=== PATIENT | female | born 1960 | race Caucasian/White ===

== ENCOUNTER 2016-07-28 10:33 | Day surgery (SDC) ==
[2015-04-21 16:15] VITALS: BMI 21.5
[2016-07-28] MEDS ORDERED: LIDOCAINE 1% 20 ML MDV ID ONE (11:30)
[2016-07-28] MEDS ORDERED: VERSED ONE (12:20)
[2016-07-28] MEDS ORDERED: DIPRIVAN 20 ML VIAL IVP ONE (12:20)
[2016-07-28] MEDS ORDERED: LIDOCAINE HCL 2% LUER-JET ONE (12:20)
[2016-07-28 14:06] VITALS: BP 141/89; TEMP 98.1
--- NOTE | 2016-07-29 14:05 | OP ---
INDICATIONS FOR PROCEDURE: 56 year old female present for evaluation of an epigastric burning and burning in her throat. She has burning in her upper chest and throat area at night time and will wake her up at times. She does admit to eating bowels of cereal at night. She also has intermittent dysphagia of solid foods. She has a history of esophageal stricture which was dilated in the past. She presents now for endoscopy investigation. MEDICATIONS: SEE ANESTHESIA NOTES. PROCEDURE: ENDOSCOPY, JOHN BIOPSY and SLOVENIAN DILATION. REPORT: The risks, benefits, alternatives and limitations were discussed in detail with the patient. Informed consent was obtained. After adequate sedation was achieved, the video endoscope was introduced in the posterior pharynx and esophagus under direct vision and easily advanced down to the second portion of the duodenum. I then slowly withdrew. The duodenal mucosa appeared unremarkable as did the duodenal bulb. The antrum and body were relatively unremarkable. Two biopsies from the antrum and the one from the body for H.Pylori testing. The scope was retroflexed to look at the cardia and fundus which was revealed a small hiatal hernia and no other abnormalities. The scope was anteflexed and withdrawn back through the esophagus there was about a 2cm sliding hiatal hernia. At the GE junction there is mild stricturing. The mucosa was otherwise unremarkable the entire length of the esophagus. The advance the scope back down the gastric lumen and the place the guidewire and withdrew the scope. Over the guidewire I easily advanced the 56 [place] Dilator. The patient tolerated the procedure well with stable vital signs and pulse oximetry throughout. IMPRESSION: 1. Small hiatal hernia 2. Esophageal stricture successful dilated as above RECOMMENDATIONS: 1. Strict reflux precautions. I went over these in great detail with her. Especially nothing to eat or drink late at night. I have asked her to elevate her head in bed 4-6 inches as well continue with better reflux precautions as discussed. 2. I have suggested taking an over the counter Pepcid AC QHS to go along with her QAM Omeprazole 3. She is to cut and chew her food less and eating slowly. 4. We will see her back in the office as needed. CC: Dr. Logan FARAH
== END 2016-07-28 13:35 | disposition home or self-care (01) ==
LOC: SURG 10:33
PROVIDERS: ATTEND Internal Medicine Gastroenterology
DX: R10.13 Epigastric pain (principal); R13.10 Dysphagia, unspecified; K44.9 Diaphragmatic hernia without obstruction or gangrene; K22.2 Esophageal obstruction
CPT/HCPCS: 87339

== ENCOUNTER 2016-09-24 13:15 | Outpatient (RCR) ==
[2015-04-21 16:15] VITALS: BMI 21.5
== END 2016-09-28 ==
PROVIDERS: ATTEND Nurse Practitioner Family
DX: M50.320 Other cervical disc degeneration, mid-cervical region, unspecified level (principal); M79.602 Pain in left arm

== ENCOUNTER 2016-10-13 10:00 | Outpatient (RCR) ==
[2015-04-21 16:15] VITALS: BMI 21.5
--- NOTE | 2016-10-05 15:49 | RS.OPPTEV2 ---
Date of Note: 10/01/16 Visit #: 1 Date of Evaluation: 10/01/16 Payer Source: Medicaid Date of Onset/Injury/Change in Status: 03/01/16 Treatment Diagnosis: Cervical disc degeneration, cervical spondylosis History of Condition/Mechanism of Injury:: Patient reports chronic neck pain over ten years. She has had three different surgical procedures to the neck, the most recent surgery was over 5 years ago. States her neck pain and limitations have continued to worsen. Prior Level of Function.....Patient was independent with: ADL's, Self Care, Ambulation/Mobility, Community Integration/Access Functional Limitations: Sleep, Self Care, ADL's, Reaching, Pushing, Pulling, Lifting, Carrying, Sitting, Community Access/Integration Current Subjective/complaints:: Patient reports neck pain and migraines limit her functional ability on a daily basis. States over the last six months, her migraines have increased to approximately four times a week. She goes to Pain Management and receives injections to the low back. States Dr. Massey office has recommended injections to her neck, but Pain Management will not do them. Reports neck pain, mainly throbbing, that goes into the head. Reports pain into both shoulders. States she gets numbness into her UE's. States she has tingling in her hands from Carpal Tunnel Syndrome. Reports difficulty driving due to limited neck ROM. Reports decreased er medical technician strength and the feeling of heaviness in the UE's. Reports having difficulty using her UE's to fix her hair or put on her makeup. Also reports having to take showers, because she cannot get out of a tub. She lives alone and needs to be able to do everything for herself. States she is trying to get Disability. She has a hearing next month. Medical History Medical History: Hypertension, COPD, Diabetes, Arthritis Medical History Comments:: Fibromyalgia, migraines Surgical History: (X 3, most recent surgery >5 years ago) Smoking Status: Never smoker Hx Home Medications: Lipitor,Elavil, Elmiron, [place],Topamax, Gabapentin, Sumatriptan,omeprazole Patient's Goals: Her goal is to get relief neck pain and gain more mobility. Pain Assessment - Pain Description Pain Location: Cervical spine Pain Description: Throbbing Current Pain Intensity: 8/10 Worst Pain Intensity: 10/10 Functional Outcome Measure Neck Disability Index: 84 - G Codes & Severity Modifier G Codes & Modifier: NA Source of G Code score: NA Observation - Observation Posture: Forward Head, Rounded Shoulders Handedness: Right - ROM Comments: Cervical flexion 50% of normal range, extension ~ 10 degrees past neutral, rotation to the left 10-15 degrees, rotation to the right 45 degrees. Bilateral UE AROM is approximately 130 degrees flexion, scaption, and abduction. - Strength Comments: General UE strength 4/5. Dust Control Engineer Strength Left Hand Dust Control Engineer Strength: does not register Right Hand Dust Control Engineer Strength: 17 lbs. Dynamometer Testing Position: 2nd Position Palpation Comments:: Patient reports tenderness throughout bilateral upper traps, cervical paraspinals, and over the spinous processes throughout the cervical spine. Reports no tenderness at the suboccipital myofascia. Demonstrates moderate increased muscle tone along bilateral upper traps. Sensation - Sensation Right Upper Extremity: Intact/Normal Left Upper Extremity: Intact/Normal Interventions - Exercise/Activities/Manual Therapy Exercises/Activities: Patient instructed in exercises for home of: gentle stretching into lateral flexion and rotation, scapular retraction, and pec stretch (corner stretch). Manual Therapy: NA HOME EXERCISE PROGRAM: gentle stretching into lateral flexion and rotation, scapular retraction, and pec stretch (corner stretch). - Charges Total Direct Minutes: 55 mins Total Treatment Time: 55 mins Procedures billed for this date of service:: LATOYA wright X3 Assessment Assessment: Patient presents to therapy with a diagnosis of Degeneration of intervertebral disc of cervical spine, left arm pain. Reports progressive neck and UE pain, and migraines. Reports limitation in most selfcare and ADL's due to neck and UE pain. She exhibits increased muscle tone along the upper traps bilaterally. She demonstrates limited cervical AROM. General weakness in the UE's and er medical technician does not register upon testing the left hand. She demonstrates potential to get improvement in muscle tone to help improve her mobility at the cervical spine. She will benefit from stretching, stability/postural exercises, and education to decrease her symptoms and improve her overall functional ability. Patient Education: Education of diagnosis, Body/Joint mechanics, Home Exercise Program, Activity Modification, Education of Plan of Care Rehab Potential: Good Short Term Goals Goal #1: Pt independent and compliant with initial HEP. Goal to be met by: 10/19/16 Goal #2: Cervical rotation to the left improved to 30-40 degrees. Goal to be met by: 10/19/16 Goal #3: Muscle tone along bilateral upper traps decreased to minimal. Goal to be met by: 10/19/16 Snf Goals Goal #1: Patient knows HEP and to continue ex's to maintain functional level at D/C. Goal to be met by: 11/14/16 Goal #2: Score on Neck Disability index improved to 60. Goal to be met by: 11/14/16 Goal #3: Pt able to perform selfcare and ADL's with minimal neck pain. Goal to be met by: 11/14/16 Goal #4: Pt will demonstrate good postural awareness. Goal to be met by: 11/14/16 Plan - Treatment to be Provided Procedures: Therapeutic Exercises, Therapeutic Activity, Manual Therapy, Patient Education Modalities: Electrical Stimulation, Ultrasound/Phonophoresis, Cryotherapy, Hot Packs, Mechanical Traction (trial of gentle cervical traction) - Treatment Plan Frequency: 3 X week Duration: 4 weeks ORDER # VISITS AND/OR THROUGH DATE: 11/14/16 - Treatment Code (1) Neck pain Comments: M54.2 (2) Muscle tightness Comments: M62.89 (3) Degenerative disc disease, cervical Comments: M50.30
--- NOTE | 2016-10-06 11:18 | RS.OPPTDN ---
Subjective Date of Note: 10/06/16 Visit #: 2 Date of Evaluation: 10/01/16 Payer Source: Medicaid Treatment Diagnosis: Cervical disc degeneration, cervical spondylosis Current Subjective/complaints:: Patient arrives at clinic with report of having a migraine the past two days and her cervical motion is very guarded. Pain Assessment - Pain Description Pain Location: Cervical spine Pain Description: Throbbing Current Pain Intensity: 12/10 - Heat/Cryotherapy Treatment: Hot Pack (20 mins. prior to manual therapy.) Interventions - Exercise/Activities/Manual Therapy Exercises/Activities: N/A Total minutes of Exercise: 0 Manual Therapy: 35 mins. total of gentle soft tissue mobilizations to the cervical paraspinals and bilateral upper traps.Attempted gentle occipital release ,but unable to tolerate due to pain. Total minutes of Manual Therapy: 35 HOME EXERCISE PROGRAM: gentle stretching into lateral flexion and rotation, scapular retraction, and pec stretch (corner stretch). - Charges Total Direct Minutes: 35 Total Treatment Time: 55 Procedures billed for this date of service:: hp,manual 2 Assessment: Patient is very guarded today,reports increased pain with moderate pressure application during masage.She is able to tolerate light pressure .She reports sharp pain with atempted occipital release today.She has hypertonus present in both the L and R upper traps.She also has tenderness present at the C7 spinous process. Patient Education: Education of diagnosis, Body/Joint mechanics, Home Exercise Program, Home Safety, Activity Modification, Education of Plan of Care Short Term Goals Goal #1: Pt independent and compliant with initial HEP. Goal to be met by: 10/19/16 Goal #2: Cervical rotation to the left improved to 30-40 degrees. Goal to be met by: 10/19/16 Goal #3: Muscle tone along bilateral upper traps decreased to minimal. Goal to be met by: 10/19/16 Dye Room Helper Goals Goal #1: Patient knows HEP and to continue ex's to maintain functional level at D/C. Goal to be met by: 11/14/16 Goal #2: Score on Neck Disability index improved to 60. Goal to be met by: 11/14/16 Goal #3: Pt able to perform selfcare and ADL's with minimal neck pain. Goal to be met by: 11/14/16 Goal #4: Pt will demonstrate good postural awareness. Goal to be met by: 11/14/16 Plan PLAN OF CARE EXPIRES ON:: 11/14/16 ORDER # VISITS AND/OR THROUGH DATE: 11/14/16 PLAN: Continue Plan of Care
--- NOTE | 2016-10-08 15:37 | RS.CXNS ---
Date of scheduled appointment: 10/08/16 Type: No Show
--- NOTE | 2016-10-13 11:34 | RS.OPPTDN ---
Subjective Date of Note: 10/01/16 Visit #: 3 Date of Evaluation: 10/01/16 Payer Source: Medicaid Treatment Diagnosis: Cervical disc degeneration, cervical spondylosis Current Subjective/complaints:: Patient reports having a migraine again today, feels,"slightly better."She reports ding some of the exercises as she can tolkerate,but cannot do the corner or doorway (pecs.) stretch due to this elevates her pain. Pain Assessment - Pain Description Pain Location: Cervical spine Pain Description: Throbbing, Aching Current Pain Intensity: 10/10 - Heat/Cryotherapy Treatment: Hot Pack (20 mins. to cervical , prior to manual therapy.) Interventions - Exercise/Activities/Manual Therapy Exercises/Activities: HEP review only today,has good understanding of each. Total minutes of Exercise: 0 Manual Therapy: 30 mins. total of gentle soft tissue mobilizations to the cervical paraspinals and bilateral upper traps. Total minutes of Manual Therapy: 30 HOME EXERCISE PROGRAM: gentle stretching into lateral flexion and rotation, scapular retraction, and pec stretch (corner stretch). - Charges Total Direct Minutes: 30 Total Treatment Time: 50 Procedures billed for this date of service:: hp,manual 2 Assessment: Patient tolerates manual therapy fairly well,reports increased discomfort as the soft tissue mobs. progressed.She does tolerate pressure to the paraspinal trigger points sligthly better today,but continues to be very guarded,making it difficult to assess the tone in the muscles. Patient Education: Education of diagnosis, Body/Joint mechanics, Home Exercise Program, Home Safety, Activity Modification, Education of Plan of Care Patient demonstrates compliance with HEP?: Yes (as she can tolerate) Short Term Goals Goal #1: Pt independent and compliant with initial HEP. Goal to be met by: 10/19/16 Progress towards Goal:: Progressing Goal #2: Cervical rotation to the left improved to 30-40 degrees. Goal to be met by: 10/19/16 Goal #3: Muscle tone along bilateral upper traps decreased to minimal. Goal to be met by: 10/19/16 Progress towards Goal:: No Change [facility] Goals Goal #1: Patient knows HEP and to continue ex's to maintain functional level at D/C. Goal to be met by: 11/14/16 Progress towards goal: Progressing Goal #2: Score on Neck Disability index improved to 60. Goal to be met by: 11/14/16 Goal #3: Pt able to perform selfcare and ADL's with minimal neck pain. Goal to be met by: 11/14/16 Goal #4: Pt will demonstrate good postural awareness. Goal to be met by: 11/14/16 Progress towards goal: Progressing Plan PLAN OF CARE EXPIRES ON:: 11/14/16 ORDER # VISITS AND/OR THROUGH DATE: 11/14/16 PLAN: Continue Plan of Care
--- NOTE | 2016-10-15 09:07 | RS.CXNS ---
Date of scheduled appointment: 10/15/16 Type: Cancel Reason for Cancel/NS: Called ,has migraine today.
== END 2016-10-29 ==
PROVIDERS: ATTEND Nurse Practitioner Family
DX: M50.320 Other cervical disc degeneration, mid-cervical region, unspecified level (principal); M79.602 Pain in left arm

== ENCOUNTER 2016-11-24 13:01 | Outpatient (CLI) ==
[2015-04-21 16:15] VITALS: BMI 21.5
--- NOTE | 2016-11-25 10:04 | MAMMO ---
EXAM: Digital screening mammogram with tomosynthesis and CAD HISTORY: Screening mammogram COMPARISON: Mammogram 08/24/2014 and 07/28/2011 FINDINGS: Bilateral CC and MLO views of the breasts were performed digitally and demonstrate scatter ed fibroglandular breast density. Tomosynthesis is normal. There is no abnormal nodule or calcificati on. There is no significant interval change. IMPRESSION: No new or suspicious nodule or calcification RECOMMENDATION: Annual screening mammogram BIRADS category 1: Negative
== END 2016-11-24 13:02 | disposition home or self-care (01) ==
LOC: RAD 13:01
PROVIDERS: ATTEND Family Medicine
DX: Z12.31 Encounter for screening mammogram for malignant neoplasm of breast (principal)
CPT/HCPCS: 77067

== ENCOUNTER 2017-05-12 09:19 | Emergency (ER) ==
[2017-05-12 09:24] VITALS: BP 134/77; TEMP 98; BMI 25.0
[2017-05-12] MEDS ORDERED: MORPHINE 4 MG/ML VIAL IVP STA ×2 (09:29→09:36)
[2017-05-12] MEDS ORDERED: MORPHINE 2 MG/ML SYRINGE IM STA (09:36)
[2017-05-12] MEDS: TORADOL IM STA (09:46)
[2017-05-12] MEDS: DECADRON 4 MG/ML SDV IM STA (09:47)
[2017-05-12] MEDS: ZOFRAN 4 MG/2 ML IM STA (09:48)
[2017-05-12] MEDS: MORPHINE 4 MG/ML SYRINGE IM STA (09:49)
--- NOTE | 2017-05-12 10:17 | ED.PDOC ---
General ED Provider: Dr. VIPUL CENTENO Chief Complaint: Back Pain Stated Complaint: BACK PAIN Time Seen by Physician: 09:30 Mode of Arrival: Walk-In Information Source: Patient Exam Limitations: No limitations Primary Care Provider: JESU BARRERA Nursing and Triage Documentation Reviewed and Agree: Yes Reviewed sepsis parameters & appropriate labs ordered?: Yes System Inflammatory Response Syndrome: Not Applicable Sepsis Protocol: For patient's 13 years and over: Temp is 96.8 and below OR 101 and greater Pulse >90 BPM Resp >20/minute Acutely Altered Mental Status Are patient's symptoms suggestive of a new infection, such as: -Pneumonia -Skin, Soft Tissue -Endocarditis -UTI -Bone, Joint Infection -Implantable Device -Acute Abdominal Infection -Wound Infection -Meningitis -Blood Stream Catheter Infection -Unknown System Inflammatory Response Syndrome: Not Applicable Musculoskeletal Complaint Exam - Back Pain Complaint/Exam Mechanism of Injury: Reports: No known trauma Onset/Duration: 1 DAY Symptoms Are: Still present Episodes Lasting: Hours Initial Severity: Moderate Current Severity: Moderate Character: Reports: Aching, Throbbing Aggravating: Reports: Movements, Lifting, Bending, Walking Alleviating: Reports: Rest, Position Associated Signs and Symptoms: Denies: Swelling, Redness, Bruising, Fever, Weakness, Numbness, Tingling, Abdominal pain, Flank pain, Bladder incontinence, Bowel incontinence, Weight loss, Pain with weight bearing Related History: Reports: Similar episode Cauda Equina Risk Factors: Reports: None Epidural Abcess Risk Factors: Reports: None Related Surgical History: Reports: None Focal Tenderness: Yes Paraspinal Muscle Tenderness: No Paraspinal Muscle Spasm: No Scoliosis: No Lordosis: No Kyphosis: No SLR Test: Right Negative, Left Negative Hip Motion Testing Pain: Right Negative, Left Negative Focal Weakness: Present: None Focal Sensory Loss: Present: None Gait: Present: Normal Differential Diagnoses: Strain, Sprain Review of Systems - Review Of Systems Constitutional: Reports: No symptoms Eyes: Reports: No symptoms Ears, Nose, Mouth, Throat: Reports: No symptoms Respiratory: Reports: No symptoms Cardiac: Reports: No symptoms GI: Reports: No symptoms : Reports: No symptoms Musculoskeletal: Reports: Back pain Skin: Reports: No symptoms Neurological: Reports: No symptoms Endocrine: Reports: No symptoms Hematologic/Lymphatic: Reports: No symptoms All Other Systems: Reviewed and Negative Past Medical History - Past Medical History Previously Healthy: Yes Endocrine: Reports: None Cardiovascular: Reports: None Respiratory: Reports: None Hematological: Reports: None Gastrointestinal: Reports: GERD, GI Bleed Genitourinary: Reports: None Neuro/Psych: Reports: Migraine, Depression Musculoskeletal: Reports: Back Pain Cancer: Reports: None Last Menstrual Period: n/a - Surgical History General Surgical History: Reports: Hysterectomy, Cholecystectomy, Back Surgery - Family History Family History: Reports: Unknown - Social History Smoking Status: Never smoker Hx Substance Use: No Alcohol Screening: None Physical Exam - Physical Exam Appearance: Well-appearing, No pain distress, Well-nourished Eyes: AARTI, EOMI, Conjunctiva clear ENT: Ears normal, Nose normal, Oropharynx normal Respiratory: Airway patent, Breath sounds clear, Breath sounds equal, Respirations nonlabored Cardiovascular: RRR, Pulses normal, No rub, No murmur GI/: Soft, Nontender, No masses, Bowel sounds normal, No Organomegaly Musculoskeletal: Normal strength, ROM intact, No edema, No calf tenderness Skin: Warm, Dry, Normal color Neurological: Sensation intact, Motor intact, Reflexes intact, Cranial nerves intact, Alert, Oriented Psychiatric: Affect appropriate, Mood appropriate Critical Care Note - Critical Care Note Total Time (mins): 0 Course - Course Orders, Labs, Meds: Orders Category Date Time Status Dexamethasone 4 mg/ml Inj [Decadron 4 mg/ml Sdv] MEDS 05/12/17 09:28 Discontinued 4 mg IM ONCE STA Ketorolac Tromethamine [Toradol] MEDS 05/12/17 09:28 Discontinued 30 mg IM ONCE STA Morphine Sulfate [Morphine 4 mg/ml Syringe] MEDS 05/12/17 09:39 Discontinued 4 mg IM ONCE STA Ondansetron HCl/Pf [Zofran 4 mg/2 ml] MEDS 05/12/17 09:29 Discontinued 4 mg IM ONCE STA Medications Discontinued Medications Generic Name Dose Route Start Last Admin Trade Name Freq PRN Reason Stop Dose Admin Dexamethasone Sodium Phosphate 4 mg 05/12/17 09:28 05/12/17 09:47 Decadron 4 Mg/Ml Sdv IM 05/12/17 09:29 4 mg ONCE STA Administration Ketorolac Tromethamine 30 mg 05/12/17 09:28 05/12/17 09:46 Toradol IM 05/12/17 09:29 30 mg ONCE STA Administration Morphine Sulfate 4 mg 05/12/17 09:39 05/12/17 09:49 Morphine 4 Mg/Ml Syringe IM 05/12/17 09:40 4 mg ONCE STA Administration Ondansetron HCl 4 mg 05/12/17 09:29 05/12/17 09:48 Zofran 4 Mg/2 Ml IM 05/12/17 09:30 4 mg ONCE STA Administration Vital Signs: Temp Pulse Resp BP Pulse Ox 05/12/17 09:21 98.0 F 112 H 20 134/77 98 Departure - Departure Time of Disposition: 10:17 Disposition: HOME SELF-CARE Discharge Problem: Backache Instructions: Back Pain (ED) Condition: Good Pt referred to PMD for follow-up: Yes IPMP verified?: No Additional Instructions: Please call your Family Physician as soon as possible to schedule a follow-up appointment. Allergies/Adverse Reactions: Allergies ibuprofen Adverse Reaction (Verified 05/12/17 09:24) Home Medications: Ambulatory Orders Hydrocodone/Acetaminophen [Lortab 7.5-325 mg Tablet] 1 tab PO TID 04/21/15 Sumatriptan Succinate [Imitrex] 25 mg PO PRN PRN 04/21/15 Topiramate [Topamax] 50 mg PO BID 04/21/15 Amitriptyline HCl 75 mg PO DAILY 07/28/16 Atorvastatin Calcium 20 mg PO DAILY 07/28/16 Pregabalin [Lyrica] 100 mg PO BEDTIME 05/12/17
== END 2017-05-12 10:25 | disposition home or self-care (01) ==
LOC: ED 09:19
DX: M54.9 Dorsalgia, unspecified (principal)
CPT/HCPCS: 96372; 99283

== ENCOUNTER 2017-05-16 13:00 | Emergency (ER) ==
[2017-05-16 13:05] VITALS: BP 142/91; TEMP 98.6; BMI 24.3
[2017-05-16] MEDS ORDERED: SOLU-MEDROL 125 MG IVP STA (14:11)
[2017-05-16] MEDS ORDERED: DILAUDID 1 MG/ML SYRINGE IM STA (14:11)
--- NOTE | 2017-05-16 14:13 | ED.PDOC ---
General ED Provider: Dr. TIERNEY LAWS Chief Complaint: Back Pain Stated Complaint: patient state that the back pain she had 5 days ago and was see and treated come back today. She did not follow with PCP so came to the ER for evaluation. Rates the pain as 10/10 Time Seen by Physician: 14:12 Mode of Arrival: Walk-In Information Source: Patient Primary Care Provider: JESU BARRERA Nursing and Triage Documentation Reviewed and Agree: Yes Reviewed sepsis parameters & appropriate labs ordered?: Yes System Inflammatory Response Syndrome: Pulse >90 BPM Sepsis Protocol: For patient's 13 years and over: Temp is 96.8 and below OR 101 and greater Pulse >90 BPM Resp >20/minute Acutely Altered Mental Status Are patient's symptoms suggestive of a new infection, such as: -Pneumonia -Skin, Soft Tissue -Endocarditis -UTI -Bone, Joint Infection -Implantable Device -Acute Abdominal Infection -Wound Infection -Meningitis -Blood Stream Catheter Infection -Unknown System Inflammatory Response Syndrome: Not Applicable Musculoskeletal Complaint Exam - Back Pain Complaint/Exam Mechanism of Injury: Reports: No known trauma Onset/Duration: 2 days Symptoms Are: Still present Character: Reports: Aching, Spasmodic Aggravating: Reports: Bending Associated Signs and Symptoms: Reports: Numbness, Tingling TAD Risk Factors: Reports: None AAA Risk Factors: Reports: None Cauda Equina Risk Factors: Reports: None Epidural Abcess Risk Factors: Reports: None Related Surgical History: Reports: None Focal Tenderness: Yes Paraspinal Muscle Tenderness: Yes Paraspinal Muscle Spasm: Yes Scoliosis: No Lordosis: No SLR Test: Right Negative, Left Negative Hip Motion Testing Pain: Right Negative, Left Negative Focal Weakness: Present: None Focal Sensory Loss: Present: None Gait: Present: Normal Back Picture: 1 - tenderness Differential Diagnoses: Herniated Disk, Strain, Sprain Review of Systems - Review Of Systems Constitutional: Reports: No symptoms Eyes: Reports: No symptoms Ears, Nose, Mouth, Throat: Reports: No symptoms Respiratory: Reports: No symptoms Cardiac: Reports: No symptoms GI: Reports: No symptoms : Reports: No symptoms Musculoskeletal: Reports: Back pain Skin: Reports: No symptoms Neurological: Reports: No symptoms Endocrine: Reports: No symptoms Hematologic/Lymphatic: Reports: No symptoms All Other Systems: Reviewed and Negative Past Medical History - Past Medical History Previously Healthy: Yes Endocrine: Reports: None Cardiovascular: Reports: None Respiratory: Reports: None Hematological: Reports: None Gastrointestinal: Reports: GERD, GI Bleed Genitourinary: Reports: None Neuro/Psych: Reports: Migraine, Depression Musculoskeletal: Reports: Back Pain Cancer: Reports: None Last Menstrual Period: HYSTERECTOMY - Surgical History General Surgical History: Reports: Hysterectomy, Cholecystectomy, Back Surgery - Family History Family History: Reports: Unknown - Social History Smoking Status: Never smoker Hx Substance Use: No Alcohol Screening: None Physical Exam - Physical Exam Appearance: Ill-appearing Ill-appearing: Mild Pain Distress: Severe Eyes: AARTI, EOMI, Conjunctiva clear Neck: Supple Cardiovascular: Pulses normal, Tachycardia GI/: Soft, Nontender, No masses, Bowel sounds normal, No Organomegaly Musculoskeletal: Limited ROM (on the back ) Skin: Warm, Dry, Normal color Neurological: Sensation intact, Motor intact, Reflexes intact, Cranial nerves intact, Alert, Oriented Psychiatric: Anxious Critical Care Note - Critical Care Note Total Time (mins): 0 Course - Course Orders, Labs, Meds: Orders Category Date Time Status Hydromorphone HCl [Dilaudid 1 mg/ml Syringe] MEDS 05/16/17 14:11 Discontinued 1 mg IM ONCE STA Methylprednisolone Sod Succ/Pf [Solu-Medrol 125 mg] MEDS 05/16/17 14:11 Discontinued 125 mg IVP ONCE STA Medications Discontinued Medications Generic Name Dose Route Start Last Admin Trade Name Freq PRN Reason Stop Dose Admin Hydromorphone HCl 1 mg 05/16/17 14:11 05/16/17 14:16 Dilaudid 1 Mg/Ml Syringe IM 05/16/17 14:12 1 mg ONCE STA Administration Methylprednisolone Sodium Succinate 125 mg 05/16/17 14:11 05/16/17 14:17 Solu-Medrol 125 Mg IVP 05/16/17 14:12 125 mg ONCE STA Administration Vital Signs: Temp Pulse Resp BP Pulse Ox 05/16/17 13:01 98.6 F 110 H 20 142/91 H 98 Departure - Departure Time of Disposition: 14:16 Disposition: HOME SELF-CARE Discharge Problem: Back pain Qualifiers: Back pain location: low back pain Chronicity: acute Back pain laterality: bilateral Sciatica presence: with sciatica Sciatica laterality: bilateral sciatica Qualified Code(s): M54.42 - Lumbago with sciatica, left side Instructions: Lumbar Radiculopathy (ED), Back Pain (ED) Condition: Stable Pt referred to PMD for follow-up: Yes IPMP verified?: No (no Narcotic Rx prescribed ) Additional Instructions: Continue home Medications MUST FOLLOW UP WITH PCP. WILL NOT TREAT CHRONIC PAIN IN THE ER Allergies/Adverse Reactions: Allergies ibuprofen Adverse Reaction (Verified 05/16/17 13:06) Home Medications: Ambulatory Orders Hydrocodone/Acetaminophen [Lortab 7.5-325 mg Tablet] 1 tab PO TID 04/21/15 Sumatriptan Succinate [Imitrex] 25 mg PO PRN PRN 04/21/15 Topiramate [Topamax] 50 mg PO BID 04/21/15 Amitriptyline HCl 75 mg PO DAILY 07/28/16 Atorvastatin Calcium 20 mg PO DAILY 07/28/16 Pregabalin [Lyrica] 100 mg PO BEDTIME 05/12/17 Disposition Discussed With: Patient, Family
== END 2017-05-16 14:32 | disposition home or self-care (01) ==
LOC: ED 13:00
DX: M54.42 Lumbago with sciatica, left side (principal)
CPT/HCPCS: 96372; 99282

== ENCOUNTER 2017-11-26 13:38 | Outpatient (CLI) | payer OTHER ==
--- NOTE | 2017-11-29 11:44 | MAMMO ---
EXAM: Digital screening mammogram with tomosynthesis HISTORY: Screening COMPARISON: 11/24/2016 FINDINGS: Digital MLO and CC views of the right and left breast were performed. Tomosynthesis was p erformed. Computer aided detection utilized. There are scattered fibroglandular densities. There ar e calcifications in the right breast, seen on the CC view central breast posterior depth. There is n o evidence for mass, asymmetry, distortion, or suspicious calcifications in either breast. IMPRESSION: 1. Right breast calcifications. Digital diagnostic mammogram with spot compression magnification vi ews recommended 2. Negative left breast mammogram. BIRADS category 0, incomplete
== END 2017-11-26 13:39 | disposition home or self-care (01) ==
LOC: RAD 13:38
PROVIDERS: ATTEND Family Medicine
DX: Z12.31 Encounter for screening mammogram for malignant neoplasm of breast (principal)
CPT/HCPCS: 77067

== ENCOUNTER 2017-12-15 10:00 | Outpatient (CLI) ==
--- NOTE | 2017-12-15 11:00 | MAMMO ---
EXAM: Digital diagnostic history of HISTORY: Right breast calcifications COMPARISON: 11/26/2017 TECHNIQUE: Digital diagnostic mammogram FINDINGS: Digital diagnostic mammogram performed with CC view and spot compression magnification CC and MLO views. There are no right breast calcifications. Finding on prior examination was artifactu al. IMPRESSION: Negative right breast mammogram. BIRADS category 1, negative
== END 2017-12-15 10:01 | disposition home or self-care (01) ==
LOC: RAD 10:00
PROVIDERS: ATTEND Family Medicine
DX: R92.8 Other abnormal and inconclusive findings on diagnostic imaging of breast (principal)

== ENCOUNTER 2018-06-21 20:05 | Emergency (ER) ==
[2018-06-21 20:08] VITALS: BP 124/85; TEMP 97.9; BMI 25.0
--- NOTE | 2018-06-21 20:21 | ED.PDOC ---
General ED Provider: Dr. JESU BARRERA-ER Chief Complaint: Back Pain Stated Complaint: my back is flared up Time Seen by Physician: 20:10 Mode of Arrival: Walk-In Information Source: Patient Exam Limitations: No limitations Primary Care Provider: JESU BARRERA Nursing and Triage Documentation Reviewed and Agree: Yes Does patient meet sepsis criteria?: No System Inflammatory Response Syndrome: Not Applicable Sepsis Protocol: For patient's 13 years and over: Temp is 96.8 and below OR 101 and greater Pulse >90 BPM Resp >20/minute Acutely Altered Mental Status Are patient's symptoms suggestive of a new infection, such as: -Pneumonia -Skin, Soft Tissue -Endocarditis -UTI -Bone, Joint Infection -Implantable Device -Acute Abdominal Infection -Wound Infection -Meningitis -Blood Stream Catheter Infection -Unknown Musculoskeletal Complaint Exam - Back Pain Complaint/Exam Mechanism of Injury: Reports: No known trauma Onset/Duration: 2 days Symptoms Are: Still present Timing: Constant Initial Severity: Mild Current Severity: Moderate Location: Reports: Discrete Character: Reports: Dull, Aching Aggravating: Reports: Movements, Lifting, Bending, Walking Associated Signs and Symptoms: Denies: Swelling, Redness, Bruising, Fever, Weakness, Numbness, Tingling, Abdominal pain, Flank pain, Bladder incontinence, Bowel incontinence, Weight loss, Pain with weight bearing Related Surgical History: Reports: None Focal Tenderness: Yes Paraspinal Muscle Tenderness: Yes Paraspinal Muscle Spasm: No Scoliosis: No Lordosis: No Kyphosis: No SLR Test: Right Negative, Left Negative Hip Motion Testing Pain: Right Negative, Left Negative Focal Weakness: Present: None Focal Sensory Loss: Present: None Gait: Present: Abnormal Differential Diagnoses: Strain, Sprain Review of Systems - Review Of Systems Constitutional: Reports: No symptoms Eyes: Reports: No symptoms Ears, Nose, Mouth, Throat: Reports: No symptoms Respiratory: Reports: No symptoms Cardiac: Reports: No symptoms GI: Reports: No symptoms : Reports: No symptoms Musculoskeletal: Reports: Back pain Skin: Reports: No symptoms Neurological: Reports: No symptoms Endocrine: Reports: No symptoms Hematologic/Lymphatic: Reports: No symptoms All Other Systems: Reviewed and Negative Past Medical History - Past Medical History Previously Healthy: Yes Endocrine: Reports: None Cardiovascular: Reports: None Respiratory: Reports: None Hematological: Reports: None Gastrointestinal: Reports: GERD, GI Bleed Genitourinary: Reports: None Neuro/Psych: Reports: Migraine, Depression Musculoskeletal: Reports: Back Pain Cancer: Reports: None Last Menstrual Period: none - Surgical History General Surgical History: Reports: Hysterectomy, Cholecystectomy, Back Surgery - Family History Family History: Reports: Unknown - Social History Smoking Status: Never smoker Hx Substance Use: No Alcohol Screening: None - Immunizations Tetanus Shot up to Date: Yes Physical Exam - Physical Exam Appearance: Well-appearing, No pain distress, Well-nourished Pain Distress: Moderate Eyes: AARTI, EOMI, Conjunctiva clear ENT: Ears normal, Nose normal, Oropharynx normal Neck: Supple Respiratory: Airway patent Cardiovascular: RRR, Pulses normal, No rub, No murmur GI/: Soft, Nontender, No masses, Bowel sounds normal, No Organomegaly Musculoskeletal: Normal strength, ROM intact, No edema, No calf tenderness Skin: Warm, Dry, Normal color Neurological: Sensation intact, Motor intact, Reflexes intact, Cranial nerves intact, Alert, Oriented Psychiatric: Affect appropriate, Mood appropriate Critical Care Note - Critical Care Note Total Time (mins): 0 Course - Course Vital Signs: Temp Pulse Resp BP Pulse Ox 06/21/18 20:06 97.9 F 98 H 16 124/85 98 Departure - Departure Time of Disposition: 20:21 Disposition: HOME SELF-CARE Discharge Problem: Backache Instructions: Acute Low Back Pain (ED) Condition: Good Pt referred to PMD for follow-up: No IPMP verified?: No Additional Instructions: percocet 10mg q 6hrs prn pain #15---medro dose pack---see me prn Allergies/Adverse Reactions: Allergies ibuprofen Adverse Reaction (Verified 05/16/17 13:06) Home Medications: Ambulatory Orders Hydrocodone/Acetaminophen [Lortab 7.5-325 mg Tablet] 1 tab PO TID 04/21/15 Sumatriptan Succinate [Imitrex] 25 mg PO PRN PRN 04/21/15 Topiramate [Topamax] 50 mg PO BID 04/21/15 Amitriptyline HCl 75 mg PO DAILY 07/28/16 Atorvastatin Calcium 20 mg PO DAILY 07/28/16 Pregabalin [Lyrica] 100 mg PO BEDTIME 05/12/17 Disposition Discussed With: Patient, Family
== END 2018-06-21 20:26 | disposition home or self-care (01) ==
LOC: ED 20:05
DX: M54.9 Dorsalgia, unspecified (principal)
CPT/HCPCS: 99282